=== PATIENT | male | born 1990 | race Two or more races ===

== ENCOUNTER 2018-07-20 09:40 | Emergency (ER) | payer OTHER ==
[~2018-07-20] VITALS: Ht 160 cm; Wt 80.7 kg
[2018-07-20 09:51] VITALS: Ht 160 cm; Wt 80.7 kg
[2018-07-20 11:25] VITALS: BP 126/86
== END 2018-07-20 11:25 | disposition home or self-care (01) ==
LOC: ED 09:40
DX: T83.098A Other mechanical complication of other urinary catheter, initial encounter (principal); I10 Essential (primary) hypertension; E11.9 Type 2 diabetes mellitus without complications
CPT/HCPCS: 82962